=== PATIENT | male | born 1990 ===

== ENCOUNTER 2021-06-29 20:08 | Emergency (ER) | payer OTHER ==
[~2021-06-29 20:08] MED LIST: FLOMAX0.4 MG PO; NORCO 5-325 TA1 EACH PO; TORADOL 10 MG T10 MG PO; ZOFRAN ODT 4 MG4 MG SL
== END 2021-06-30 01:09 | disposition left against medical advice (07) ==
LOC: ER1 20:08
DX: Z53.21 Procedure and treatment not carried out due to patient leaving prior to being seen by health care provider (principal)